=== PATIENT | female | born 1960 | race Caucasian/White ===

== ENCOUNTER 2025-06-01 10:54 | Outpatient (CLI) | payer BC ==
[2025-06-01 11:43] LABS: Estimated GFR - POC 72.0
== END 2025-06-01 10:55 | disposition home or self-care (01) ==
LOC: CSHMRI 10:54
PROVIDERS: ATTEND Family Medicine
DX: M47.26 Other spondylosis with radiculopathy, lumbar region (principal); R92.30 Dense breasts, unspecified; M48.061 Spinal stenosis, lumbar region without neurogenic claudication; M43.16 Spondylolisthesis, lumbar region
CPT/HCPCS: 36415; 72148; 76376; 82565; C8908